=== PATIENT | female | born 1935 | race Hispanic/Latino ===

== ENCOUNTER 2016-02-07 21:25 | Emergency (ER) | payer OTHER ==
[~2016-02-07] VITALS: Ht 160 cm; Wt 104.1 kg
[~2016-02-07 21:25] MED LIST: AMLODIPINE BESYL5 MG PO; JANUVIA100 MG PO; LISINOPRIL40 MG PO; LOVASTATIN40 MG PO; METOPROLOL SUCC ER PO; WARFARIN SODIUM5 MG PO
[2016-02-07 21:43] VITALS: BP 147/52
[2016-02-07 22:26] LABS: HEMATOCRIT 39.3 % (36.0-46.0); MCH 28.9 PG (29.0-34.0); MCHC 33.3 G/DL (30.0-36.0); MCV 86.6 FL (83-99); MEAN PLAT.VOLUME 10.4 uM^3 (9.5-12.4); PLATELET COUNT 219 K/uL (156-360); RBC DIS.WIDTH-SD 43.3 % (39-53); RED BLOOD COUNT 4.54 M/uL (3.80-5.20); WHITE BLOOD COUNT 7.8 K/uL (4.1-10.2)
[2016-02-07 22:35] LABS: CHLORIDE 103 mEq/L (99-109); POTASSIUM 3.8 mEq/L (3.7-5.4); SODIUM 142 mEq/L (136-147)
[2016-02-07 22:37] LABS: GLUCOSE 140 mg/dL (70-99)
[2016-02-07 22:38] LABS: ANION GAP 13 MEQ/L (2-14)
[2016-02-07 22:41] LABS: GFR ESTIMATE (CALCULATED) > 59 mL/min/
[2016-02-07 22:42] LABS: UREA NITROGEN (BUN) 17 mg/dL (9-23)
[2016-02-07 23:11] LABS: PROTHROMBIN TIME 31.9 (9.2-11.2); PTT 52.5 (25-32)
[2016-02-07 23:29] LABS: ADD MIUA? YES; BILIRUBIN NEGATIVE; BLOOD LARGE; COLOR DK YELLOW ((YELLOW)); GLUCOSE (STRIP) >=1000; KETONES TRACE; LEUKOCYTES SMALL; NITRITE NEGATIVE; PROTEIN (STRIP) TRACE; SPECIFIC GRAVITY 1.032 (1.000-1.030)
[2016-02-08 00:16] LABS: RED BLOOD CELLS TNTC /HPF (0-5); UCUL ADDED? YES
[2016-02-08] MEDS ORDERED: BACTRIM,SEPT1 TABLET PO (00:23)
[2016-02-08] MEDS ORDERED: PYRIDIUM100 MG PO (00:23)
== END 2016-02-08 00:31 | disposition home or self-care (01) ==
LOC: EME 21:25 → EXP 21:35 → EME 21:35
PROVIDERS: Physician Assistant
DX: N39.0 Urinary tract infection, site not specified (principal); I10 Essential (primary) hypertension; E11.9 Type 2 diabetes mellitus without complications; I48.91 Unspecified atrial fibrillation; Z79.01 Long term (current) use of anticoagulants
CPT/HCPCS: 74176; 80048; 81003; 85027; 85610; 85730; 86850; 86900; 86901; 87077; 87086; 87186; 99281; 99284

== ENCOUNTER 2016-11-29 10:14 | Inpatient (IN) | payer OTHER ==
[~2016-11-29] VITALS: Ht 157.5 cm; Wt 105.5 kg
[~2016-11-29 10:14] MED LIST changes: +BACTRIM,SEPT1 TABLET PO; +PYRIDIUM100 MG PO
[2016-11-29 10:37] LABS: EOSINOPHIL (%) 0.7 % (0-5); EOSINOPHIL COUNT 0.1 K/uL (0-0.3); HEMATOCRIT 40.5 % (36.0-46.0); IMMATURE GRANULOCYTE (%) 0.4 % (0.0-0.7); MCH 29.2 PG (29.0-34.0); MCHC 32.8 G/DL (30.0-36.0); MEAN PLAT.VOLUME 10.2 uM^3 (9.5-12.4); MONOCYTE (%) 5.7 % (3-12); MONOCYTE COUNT 0.6 K/uL (0-0.8); NEUTROPHIL (%) 83.7 % (45-76); PLATELET COUNT 214 K/uL (156-360); RBC DIS.WIDTH-CV 13.2 % (11.8-14.6); RED BLOOD COUNT 4.55 M/uL (3.80-5.20); WHITE BLOOD COUNT 10.7 K/uL (4.1-10.2)
[2016-11-29 10:44] LABS: CHLORIDE 100 mEq/L (99-109); SODIUM 136 mEq/L (136-147)
[2016-11-29 10:46] LABS: GLUCOSE 205 mg/dL (70-99)
[2016-11-29 10:47] LABS: ANION GAP 12 MEQ/L (2-14)
[2016-11-29 10:48] LABS: TOTAL BILIRUBIN 0.5 mg/dL (0.0-1.0)
[2016-11-29 10:50] LABS: ALKALINE PHOSPHATASE 72 IU/L (3-129); GFR ESTIMATE (CALCULATED) > 59 mL/min/
[2016-11-29 10:51] LABS: UREA NITROGEN (BUN) 16 mg/dL (9-23)
[2016-11-29 10:57] LABS: TROP-I INTERPRETATION NEGATIVE; TROPONIN-I 0.01 ng/mL (0.0-0.30)
[2016-11-29 11:03] LABS: LIPASE 14 U/L (1.0-51.0)
[2016-11-29 13:18] LABS: INTER. NORMALIZED RATIO 2.7; PROTHROMBIN TIME 31.3 SEC (10.2-12.9)
[2016-11-29 16:08] VITALS: BP 123/56
[2016-11-29] MEDS ORDERED: ACETAMINOPHEN325 M3 PO (17:40)
[2016-11-29] MEDS ORDERED: CHLORTHALIDONE25 MG PO (17:40)
[2016-11-29] MEDS ORDERED: LOPRESSOR50 MG PO (17:41)
[2016-11-29 18:09] LABS: TROP-I INTERPRETATION NEGATIVE; TROPONIN-I 0.06 ng/mL (0.0-0.30)
[2016-11-29 18:19] LABS: POINT-OF-CARE METER ID UU14314084
[2016-11-29 19:10] VITALS: BP 111/54
[2016-11-29] MEDS ORDERED: METOPROLOL SUCC50 MG PO (21:41)
[2016-11-29] MEDS ORDERED: NORVASC10 MG PO (21:43)
[2016-11-29] MEDS ORDERED: COLACE100 MG PO (21:45)
[2016-11-29] MEDS ORDERED: FUROSEMIDE20 MG PO (21:46)
[2016-11-29] MEDS ORDERED: CITRATE OF MAG296 ML PO (21:47)
[2016-11-29] MEDS ORDERED: GLUCOPHAGE1000 MG PO (21:47)
[2016-11-29] MEDS ORDERED: PYRIDIUM100 MG PO (21:49)
[2016-11-29] MEDS ORDERED: ERGOCALCIF50000 UNIT PO (21:52)
[2016-11-29] MEDS ORDERED: VENTOLIN HFA18 GM IH (21:52)
[2016-11-29] MEDS ORDERED: TYLENOL WITH C1 EACH PO (21:55)
[2016-11-29] MEDS ORDERED: BACTRIM,SEPT1 TABLET PO (21:55)
[2016-11-29 22:03] LABS: POINT-OF-CARE METER ID UU14208750
[2016-11-29 23:50] VITALS: BP 127/62
[2016-11-30 01:49] LABS: TROP-I INTERPRETATION NEGATIVE; TROPONIN-I 0.08 ng/mL (0.0-0.30)
[2016-11-30 02:50] VITALS: BP 177/79
[2016-11-30 05:55] LABS: INFLUENZA A VIRAL ANTIGEN NEGATIVE; INFLUENZA B VIRAL ANTIGEN NEGATIVE
[2016-11-30 06:47] LABS: HEMATOCRIT 36.5 % (36.0-46.0); MCH 28.9 PG (29.0-34.0); MCHC 31.8 G/DL (30.0-36.0); MEAN PLAT.VOLUME 10.9 uM^3 (9.5-12.4); PLATELET COUNT 210 K/uL (156-360); RBC DIS.WIDTH-CV 13.2 % (11.8-14.6); RBC DIS.WIDTH-SD 44.1 % (39-53); RED BLOOD COUNT 4.01 M/uL (3.80-5.20); WHITE BLOOD COUNT 7.3 K/uL (4.1-10.2)
[2016-11-30 06:49] LABS: INTER. NORMALIZED RATIO 2.8; PROTHROMBIN TIME 31.9 SEC (10.2-12.9)
[2016-11-30 07:00] VITALS: BP 149/67
[2016-11-30 07:03] LABS: POINT-OF-CARE METER ID UU14208750
[2016-11-30 11:05] VITALS: BP 148/66
[2016-11-30 11:52] LABS: POINT-OF-CARE METER ID UU14208750
[2016-11-30 15:00] VITALS: BP 148/67
[2016-11-30 16:11] LABS: POINT-OF-CARE METER ID UU14208750; POINT-OF-CARE USER ID PUTDRM
[2016-11-30 20:04] VITALS: BP 131/61
[2016-11-30 22:01] LABS: POINT-OF-CARE METER ID UU14314084
[2016-12-01 01:09] VITALS: BP 128/63
[2016-12-01 03:39] VITALS: BP 166/72
[2016-12-01 07:09] LABS: EOSINOPHIL (%) 3.8 % (0-5); EOSINOPHIL COUNT 0.2 K/uL (0-0.3); HEMATOCRIT 34.6 % (36.0-46.0); IMMATURE GRANULOCYTE (%) 0.3 % (0.0-0.7); INSTRUMENT ABS NEUTROPHIL CT 3.2 K/uL; LYMPHOCYTE COUNT 1.6 K/uL (1.0-2.8); MCH 29.4 PG (29.0-34.0); MCHC 32.7 G/DL (30.0-36.0); MCV 89.9 FL (83-99); MEAN PLAT.VOLUME 10.2 uM^3 (9.5-12.4); MONOCYTE (%) 12.9 % (3-12); MONOCYTE COUNT 0.8 K/uL (0-0.8); NEUTROPHIL (%) 54.2 % (45-76); NEUTROPHIL COUNT 3.2 K/uL (1.8-6.4); PLATELET COUNT 167 K/uL (156-360); RBC DIS.WIDTH-CV 13.2 % (11.8-14.6); RBC DIS.WIDTH-SD 43.3 % (39-53); RED BLOOD COUNT 3.85 M/uL (3.80-5.20); WHITE BLOOD COUNT 5.8 K/uL (4.1-10.2)
[2016-12-01 07:29] LABS: ALKALINE PHOSPHATASE 55 IU/L (3-129); ANION GAP 7 MEQ/L (2-14); CHLORIDE 104 MEQ/L (99-109); GFR ESTIMATE (CALCULATED) > 59 mL/min/; POTASSIUM 3.4 MEQ/L (3.7-5.4); SAMPLE HEMOLYSIS CHECK 0; SAMPLE ICTERIC CHECK 0; SAMPLE LIPEMIA CHECK 0; TOTAL BILIRUBIN 0.3 MG/DL (0.0-1.0); UREA NITROGEN (BUN) 9 mg/dL (9-23)
[2016-12-01 07:37] LABS: GLUCOSE 114 mg/dL (70-99); SODIUM 144 MEQ/L (136-147)
[2016-12-01 07:37] LABS: POINT-OF-CARE METER ID UU14208750
[2016-12-01 07:48] VITALS: BP 167/72
[2016-12-01] MEDS ORDERED: LOPRESSOR25 MG PO (11:29)
[2016-12-01] MEDS ORDERED: CEFTIN500 MG PO (11:29)
[2016-12-01] MEDS ORDERED: METOPROLOL SUCC50 MG PO (11:42)
[2016-12-01 11:54] LABS: POINT-OF-CARE METER ID UU14208750
== END 2016-12-01 13:02 | disposition home or self-care (01) | DRG 195 ==
LOC: EME 10:14 → EDOF 12:29 → 2EAST 12:29 → ENRESERV 12:36 → 2EAST 15:42
PROVIDERS: Emergency Medicine; Hospitalist; Internal Medicine
DX: J18.9 Pneumonia, unspecified organism (principal); I48.0 Paroxysmal atrial fibrillation; I10 Essential (primary) hypertension; G47.33 Obstructive sleep apnea (adult) (pediatric); E78.5 Hyperlipidemia, unspecified; E11.9 Type 2 diabetes mellitus without complications; K59.09 Other constipation; Z79.01 Long term (current) use of anticoagulants; Z90.49 Acquired absence of other specified parts of digestive tract; Z96.652 Presence of left artificial knee joint
CPT/HCPCS: 71010; 80053; 82948; 83605; 83690; 83880; 84484; 85025; 85027; 85610; 87040; 87070; 87205; 87502; 90686; 93005; 94660; 94799; 99202; 99281; 99285; J0456; J0696; J1815; J2270; J2405; J7030; J7040; J7050; S0028

== ENCOUNTER 2017-06-06 17:10 | Emergency (ER) | payer OTHER ==
[~2017-06-06] VITALS: Ht 160 cm; Wt 101.9 kg
[~2017-06-06 17:10] MED LIST changes: +ACETAMINOPHEN325 M3 PO; +CEFTIN500 MG PO; +CHLORTHALIDONE25 MG PO; +CITRATE OF MAG296 ML PO; +COLACE100 MG PO; +ERGOCALCIF50000 UNIT PO; +FUROSEMIDE20 MG PO; +GLUCOPHAGE1000 MG PO; +LOPRESSOR25 MG PO; +LOPRESSOR50 MG PO; +METOPROLOL SUCC50 MG PO; +NORVASC10 MG PO; +TYLENOL WITH C1 EACH PO; +VENTOLIN HFA18 GM IH
[2017-06-06 18:51] LABS: HEMATOCRIT 37.1 % (36.0-46.0); HEMOGLOBIN 12.2 G/DL (11.9-15.5); MCH 28.4 PG (29.0-34.0); MCHC 32.9 G/DL (30.0-36.0); MCV 86.3 FL (83-99); PLATELET COUNT 190 K/uL (156-360); RBC DIS.WIDTH-CV 13.7 % (11.8-14.6); RBC DIS.WIDTH-SD 42.9 % (39-53); WHITE BLOOD COUNT 6.6 K/uL (4.1-10.2)
[2017-06-06 18:56] LABS: CHLORIDE 102 mEq/L (99-109); POTASSIUM 4.5 mEq/L (3.7-5.4); SODIUM 139 mEq/L (136-147)
[2017-06-06 18:58] LABS: GLUCOSE 178 mg/dL (70-99)
[2017-06-06 19:02] LABS: CREATININE 0.6 mg/dL (0.6-1.3); GFR ESTIMATE (CALCULATED) > 59 mL/min/; UREA NITROGEN (BUN) 15 mg/dL (9-23)
[2017-06-06 19:10] LABS: TROP-I INTERPRETATION NEGATIVE; TROPONIN-I 0.01 ng/mL (0.0-0.30)
[2017-06-06 22:02] LABS: APPEARANCE CLEAR ((CLEAR)); BILIRUBIN NEGATIVE; BLOOD NEGATIVE; COLOR COLORLESS ((YELLOW)); GLUCOSE (STRIP) NEGATIVE; KETONES NEGATIVE; LEUKOCYTES TRACE; NITRITE NEGATIVE; PROTEIN (STRIP) NEGATIVE; SPECIFIC GRAVITY 1.006 (1.000-1.030); UROBILINOGEN 0.2 MG/DL (0.2-1.0)
[2017-06-06 22:14] LABS: BACTERIA NONE SEEN /HPF; EPITHELIAL CELLS RARE /HPF; MUCUS NONE SEEN /LPF; RED BLOOD CELLS 0-5 /HPF (0-5); WHITE BLOOD CELLS 0-5 /HPF (0-5)
[2017-06-06] MEDS ORDERED: LORCET HD 10-31 EACH PO (22:23)
[2017-06-06 22:45] VITALS: BP 110/60
== END 2017-06-06 22:47 | disposition home or self-care (01) ==
LOC: EME 17:10
PROVIDERS: Emergency Medicine; Nurse Practitioner Family
DX: M48.061 Spinal stenosis, lumbar region without neurogenic claudication (principal); M54.16 Radiculopathy, lumbar region; E11.9 Type 2 diabetes mellitus without complications; Z79.84 Long term (current) use of oral hypoglycemic drugs; I10 Essential (primary) hypertension; E78.5 Hyperlipidemia, unspecified; G89.29 Other chronic pain; M54.9 Dorsalgia, unspecified; Z79.01 Long term (current) use of anticoagulants; Z87.440 Personal history of urinary (tract) infections; Z85.9 Personal history of malignant neoplasm, unspecified; Z90.49 Acquired absence of other specified parts of digestive tract; Z96.652 Presence of left artificial knee joint; Z88.0 Allergy status to penicillin
CPT/HCPCS: 72128; 72131; 74176; 80048; 81003; 84484; 85027; 93005; 99281; 99285; J2405; J3010; J7030

== ENCOUNTER 2017-07-02 10:19 | Inpatient (IN) | payer OTHER ==
[~2017-07-02] VITALS: Ht 160 cm; Wt 99.9 kg
[~2017-07-02 10:19] MED LIST changes: +LORCET HD 10-31 EACH PO
[2017-07-02 11:07] LABS: HEMATOCRIT 38.7 % (36.0-46.0); HEMOGLOBIN 13.1 G/DL (11.9-15.5); MCH 28.7 PG (29.0-34.0); MCHC 33.9 G/DL (30.0-36.0); MCV 84.7 FL (83-99); PLATELET COUNT 159 K/uL (156-360); RBC DIS.WIDTH-CV 13.5 % (11.8-14.6); RBC DIS.WIDTH-SD 42.1 % (39-53); RED BLOOD COUNT 4.57 M/uL (3.80-5.20); WHITE BLOOD COUNT 6.1 K/uL (4.1-10.2)
[2017-07-02 11:18] LABS: CHLORIDE 98 mEq/L (99-109); POTASSIUM 3.7 mEq/L (3.7-5.4); SODIUM 136 mEq/L (136-147)
[2017-07-02 11:20] LABS: GLUCOSE 219 mg/dL (70-99)
[2017-07-02 11:24] LABS: CREATININE 0.7 mg/dL (0.6-1.3); GFR ESTIMATE (CALCULATED) > 59 mL/min/
[2017-07-02 11:25] LABS: UREA NITROGEN (BUN) 11 mg/dL (9-23)
[2017-07-02 11:28] LABS: TROP-I INTERPRETATION NEGATIVE; TROPONIN-I 0.03 ng/mL (0.0-0.30)
[2017-07-02 13:44] LABS: BASE EXCESS 4.3 mEq/L (-3 to +3); BICARBONATE 29.8 mEq/L (22-26); CARBOXY HGB 1.7 % (0-5); COMMENTS - BLOOD GASES +C; METHEMOGLOBIN 1.1 % (0-1.5); O2 FLOW 3 L/MIN; PCO2 47 mm Hg (35-45); PO2 81 mm Hg (80-100); SITE RR +A; pH 7.41 (7.35-7.45)
[2017-07-02 13:45] LABS: DEVICE NC; TOTAL RESP RATE 32 resp/min
[2017-07-02 14:40] LABS: INTER. NORMALIZED RATIO 2.8
[2017-07-02 14:43] LABS: PTT 40.5 SEC (25-37)
[2017-07-02] MEDS ORDERED: LYRICA75 MG PO (14:57)
[2017-07-02] MEDS ORDERED: ONE DAILY1 EAC3 PO (14:57)
[2017-07-02] MEDS ORDERED: COUMADIN4 MG PO (14:57)
[2017-07-02] MEDS ORDERED: LINZESS145 MCG PO (14:58)
[2017-07-02] MEDS ORDERED: LEVEMIR100 UNIT/2 SC (14:58)
[2017-07-02] MEDS ORDERED: NOVOLOG PE100 UNITS/ SC (14:58)
[2017-07-02] MEDS ORDERED: TOPROL XL50 MG PO (14:59)
[2017-07-02] MEDS ORDERED: LOPRESSOR100 M1 PO (14:59)
[2017-07-02] MEDS ORDERED: TYLENOL EXTRA500 MG PO (15:00)
[2017-07-02] MEDS ORDERED: EAR DROPS15 ML BOTH EARS (15:01)
[2017-07-02 16:17] VITALS: BP 178/74
[2017-07-02 18:25] LABS: TROP-I INTERPRETATION NEGATIVE; TROPONIN-I 0.03 ng/mL (0.0-0.30)
[2017-07-02 20:04] VITALS: BP 150/67
[2017-07-03 00:27] VITALS: BP 166/40
[2017-07-03 00:54] LABS: TROP-I INTERPRETATION NEGATIVE; TROPONIN-I 0.02 ng/mL (0.0-0.30)
[2017-07-03 03:57] VITALS: BP 188/74
[2017-07-03 05:34] LABS: HEMATOCRIT 39.8 % (36.0-46.0); HEMOGLOBIN 12.8 G/DL (11.9-15.5); MCH 27.8 PG (29.0-34.0); MCHC 32.2 G/DL (30.0-36.0); MCV 86.3 FL (83-99); PLATELET COUNT 182 K/uL (156-360); RBC DIS.WIDTH-CV 13.7 % (11.8-14.6); RBC DIS.WIDTH-SD 43.1 % (39-53); RED BLOOD COUNT 4.61 M/uL (3.80-5.20)
[2017-07-03 05:39] LABS: INTER. NORMALIZED RATIO 2.6
[2017-07-03 05:58] LABS: CHLORIDE 100 MEQ/L (99-109); CREATININE 0.6 MG/DL (0.6-1.3); GFR ESTIMATE (CALCULATED) > 59 mL/min/; SODIUM 136 MEQ/L (136-147); UREA NITROGEN (BUN) 15 mg/dL (9-23)
[2017-07-03 06:01] LABS: GLUCOSE 346 mg/dL (70-99)
[2017-07-03 07:00] VITALS: BP 181/77
[2017-07-03 11:46] VITALS: BP 182/77
[2017-07-03 15:39] VITALS: BP 170/100
[2017-07-03 19:04] VITALS: BP 186/76
[2017-07-04 00:06] VITALS: BP 175/72
[2017-07-04 03:44] VITALS: BP 168/73
[2017-07-04 05:22] LABS: INTER. NORMALIZED RATIO 2.6
[2017-07-04 07:46] VITALS: BP 164/66
[2017-07-04 11:43] VITALS: BP 171/72
[2017-07-04 16:25] VITALS: BP 147/69
[2017-07-04 20:30] VITALS: BP 152/70
[2017-07-05] VITALS (8 sets, daily range): BP systolic 109–185; BP diastolic 58–76
[2017-07-05 05:17] LABS: INTER. NORMALIZED RATIO 3.6
[2017-07-05 10:23] LABS: PCO2 46 mm Hg (35-45); PO2 84 mm Hg (80-100); pH 7.38 (7.35-7.45)
[2017-07-05 10:24] LABS: BASE EXCESS 1.5 mEq/L (-3 to +3); BICARBONATE 27.2 mEq/L (22-26); CARBOXY HGB 1.4 % (0-5); COMMENTS - BLOOD GASES A+C+; DEVICE NC; METHEMOGLOBIN 1.4 % (0-1.5); O2 FLOW 2 L/MIN; SITE RR
[2017-07-05 10:54] LABS: BASOPHIL (%) 0.1 % (0-1); EOSINOPHIL (%) 0 % (0-5); HEMATOCRIT 39.5 % (36.0-46.0); HEMOGLOBIN 13.1 G/DL (11.9-15.5); IMMATURE GRANULOCYTE (%) 1.7 % (0.0-0.7); LYMPHOCYTE (%) 2.4 % (15-42); LYMPHOCYTE COUNT 0.3 K/uL (1.0-2.8); MCH 28.4 PG (29.0-34.0); MCHC 33.2 G/DL (30.0-36.0); MCV 85.7 FL (83-99); MONOCYTE (%) 5.3 % (3-12); MONOCYTE COUNT 0.6 K/uL (0-0.8); NEUTROPHIL (%) 90.5 % (45-76); NEUTROPHIL COUNT 10.7 K/uL (1.8-6.4); PLATELET COUNT 197 K/uL (156-360); RBC DIS.WIDTH-CV 14.1 % (11.8-14.6); RBC DIS.WIDTH-SD 43.8 % (39-53); RED BLOOD COUNT 4.61 M/uL (3.80-5.20); WHITE BLOOD COUNT 11.9 K/uL (4.1-10.2)
[2017-07-05 11:23] LABS: ALBUMIN 3.5 G/DL (3.2-4.8); ALKALINE PHOSPHATASE 72 IU/L (3-129); ALT (GPT) 16 IU/L (3-49); AST (GOT) 16 IU/L (2-34); CHLORIDE 96 MEQ/L (99-109); CREATININE 0.8 MG/DL (0.6-1.3); GFR ESTIMATE (CALCULATED) > 59 mL/min/; MAGNESIUM 2.1 mg/dl (1.3-2.7); POTASSIUM 3.8 MEQ/L (3.7-5.4); SODIUM 135 MEQ/L (136-147); TOTAL BILIRUBIN 0.3 MG/DL (0.0-1.0); TOTAL PROTEIN 5.8 G/DL (6.4-8.3)
[2017-07-05 11:24] LABS: GLUCOSE 464 mg/dL (70-99); UREA NITROGEN (BUN) 36 mg/dL (9-23)
[2017-07-06 04:43] VITALS: BP 135/58
[2017-07-06 05:48] LABS: BASOPHIL (%) 0.1 % (0-1); EOSINOPHIL (%) 0 % (0-5); HEMATOCRIT 40.6 % (36.0-46.0); HEMOGLOBIN 12.9 G/DL (11.9-15.5); IMMATURE GRANULOCYTE (%) 1.6 % (0.0-0.7); LYMPHOCYTE (%) 5.5 % (15-42); LYMPHOCYTE COUNT 0.5 K/uL (1.0-2.8); MCH 27.4 PG (29.0-34.0); MCHC 31.8 G/DL (30.0-36.0); MCV 86.2 FL (83-99); MONOCYTE (%) 4.4 % (3-12); MONOCYTE COUNT 0.4 K/uL (0-0.8); NEUTROPHIL (%) 88.4 % (45-76); NEUTROPHIL COUNT 7.4 K/uL (1.8-6.4); PLATELET COUNT 199 K/uL (156-360); RBC DIS.WIDTH-CV 14.1 % (11.8-14.6); RED BLOOD COUNT 4.71 M/uL (3.80-5.20); WHITE BLOOD COUNT 8.3 K/uL (4.1-10.2)
[2017-07-06 05:49] LABS: INTER. NORMALIZED RATIO 2.9
[2017-07-06 06:18] LABS: CHLORIDE 96 MEQ/L (99-109); CREATININE 0.9 MG/DL (0.6-1.3); GFR ESTIMATE (CALCULATED) > 59 mL/min/; GLUCOSE 391 mg/dL (70-99); MAGNESIUM 2.2 mg/dl (1.3-2.7); POTASSIUM 3.7 MEQ/L (3.7-5.4); SODIUM 137 MEQ/L (136-147); UREA NITROGEN (BUN) 41 mg/dL (9-23)
[2017-07-06 08:03] VITALS: BP 145/64
[2017-07-06 11:12] VITALS: BP 106/53
[2017-07-06 12:16] LABS: CARBOXY HGB 1.8 % (0-5); PCO2 51 mm Hg (35-45); PO2 93 mm Hg (80-100); pH 7.39 (7.35-7.45)
[2017-07-06 12:17] LABS: BASE EXCESS 4.8 mEq/L (-3 to +3); BICARBONATE 30.9 mEq/L (22-26); COMMENTS - BLOOD GASES A+C+; DEVICE NC; METHEMOGLOBIN 0.9 % (0-1.5); O2 FLOW 3 L/MIN; SITE LR; TOTAL RESP RATE 24 resp/min
[2017-07-06 15:32] VITALS: BP 152/73
[2017-07-06 19:28] VITALS: BP 150/55
[2017-07-06 21:09] LABS: COMMENTS - BLOOD GASES A+C+; DEVICE CPAP; O2 FLOW 3 L/MIN; SITE LR
[2017-07-06 21:10] LABS: PCO2 50 mm Hg (35-45); PO2 84 mm Hg (80-100); pH 7.43 (7.35-7.45)
[2017-07-06 21:11] LABS: BASE EXCESS 7.6 mEq/L (-3 to +3); BICARBONATE 33.2 mEq/L (22-26); CARBOXY HGB 1.2 % (0-5); METHEMOGLOBIN 1.1 % (0-1.5)
[2017-07-07 00:20] VITALS: BP 161/67
[2017-07-07 05:08] LABS: HEMATOCRIT 38.9 % (36.0-46.0); HEMOGLOBIN 12.8 G/DL (11.9-15.5); MCH 27.9 PG (29.0-34.0); MCHC 32.9 G/DL (30.0-36.0); MCV 84.9 FL (83-99); PLATELET COUNT 229 K/uL (156-360); RBC DIS.WIDTH-CV 13.9 % (11.8-14.6); RBC DIS.WIDTH-SD 43.2 % (39-53); RED BLOOD COUNT 4.58 M/uL (3.80-5.20); WHITE BLOOD COUNT 9.3 K/uL (4.1-10.2)
[2017-07-07 06:17] LABS: BASOPHIL (%) 0.3 % (0-1); EOSINOPHIL (%) 0 % (0-5); IMMATURE GRANULOCYTE (%) 1.6 % (0.0-0.7); LYMPHOCYTE (%) 12.6 % (15-42); LYMPHOCYTE COUNT 1.2 K/uL (1.0-2.8); MONOCYTE (%) 4.6 % (3-12); MONOCYTE COUNT 0.4 K/uL (0-0.8); NEUTROPHIL (%) 80.9 % (45-76); NEUTROPHIL COUNT 7.5 K/uL (1.8-6.4)
[2017-07-07 07:58] LABS: CHLORIDE 98 MEQ/L (99-109); CREATININE 0.7 MG/DL (0.6-1.3); GFR ESTIMATE (CALCULATED) > 59 mL/min/; GLUCOSE 332 mg/dL (70-99); POTASSIUM 4.2 MEQ/L (3.7-5.4); SODIUM 138 MEQ/L (136-147); UREA NITROGEN (BUN) 36 mg/dL (9-23)
[2017-07-07 10:16] LABS: INTER. NORMALIZED RATIO 2.2
[2017-07-07 11:19] VITALS: BP 135/62
[2017-07-07 15:21] VITALS: BP 128/56
[2017-07-07 19:19] VITALS: BP 157/64
[2017-07-08] VITALS (7 sets, daily range): BP systolic 124–184; BP diastolic 57–96
[2017-07-08 05:28] LABS: HEMATOCRIT 39.6 % (36.0-46.0); HEMOGLOBIN 12.9 G/DL (11.9-15.5); MCH 27.7 PG (29.0-34.0); MCHC 32.6 G/DL (30.0-36.0); MCV 85.2 FL (83-99); PLATELET COUNT 223 K/uL (156-360); RBC DIS.WIDTH-CV 13.8 % (11.8-14.6); RBC DIS.WIDTH-SD 42.9 % (39-53); RED BLOOD COUNT 4.65 M/uL (3.80-5.20); WHITE BLOOD COUNT 8.4 K/uL (4.1-10.2)
[2017-07-08 05:42] LABS: INTER. NORMALIZED RATIO 1.9
[2017-07-08 05:55] LABS: CHLORIDE 95 MEQ/L (99-109); CREATININE 0.5 MG/DL (0.6-1.3); GFR ESTIMATE (CALCULATED) > 59 mL/min/; GLUCOSE 273 mg/dL (70-99); SODIUM 137 MEQ/L (136-147); UREA NITROGEN (BUN) 30 mg/dL (9-23)
[2017-07-08 06:36] LABS: BASOPHIL (%) 0.2 % (0-1); EOSINOPHIL (%) 0 % (0-5); IMMATURE GRANULOCYTE (%) 1.9 % (0.0-0.7); LYMPHOCYTE (%) 12.9 % (15-42); LYMPHOCYTE COUNT 1.1 K/uL (1.0-2.8); MONOCYTE (%) 3.2 % (3-12); MONOCYTE COUNT 0.3 K/uL (0-0.8); NEUTROPHIL (%) 81.8 % (45-76); NEUTROPHIL COUNT 6.9 K/uL (1.8-6.4)
[2017-07-09 05:14] LABS: INTER. NORMALIZED RATIO 2.1
[2017-07-09 05:19] VITALS: BP 178/75
[2017-07-09 08:14] LABS: CHLORIDE 94 MEQ/L (99-109); CREATININE 0.6 MG/DL (0.6-1.3); GFR ESTIMATE (CALCULATED) > 59 mL/min/; GLUCOSE 365 mg/dL (70-99); SODIUM 137 MEQ/L (136-147); UREA NITROGEN (BUN) 29 mg/dL (9-23)
[2017-07-09 08:31] LABS: BASOPHIL (%) 0.3 % (0-1); EOSINOPHIL (%) 0 % (0-5); HEMATOCRIT 37.4 % (36.0-46.0); HEMOGLOBIN 12.3 G/DL (11.9-15.5); IMMATURE GRANULOCYTE (%) 2.7 % (0.0-0.7); LYMPHOCYTE (%) 6.3 % (15-42); LYMPHOCYTE COUNT 0.5 K/uL (1.0-2.8); MCH 28.1 PG (29.0-34.0); MCHC 32.9 G/DL (30.0-36.0); MCV 85.4 FL (83-99); MONOCYTE (%) 3.9 % (3-12); MONOCYTE COUNT 0.3 K/uL (0-0.8); NEUTROPHIL (%) 86.8 % (45-76); NEUTROPHIL COUNT 6.5 K/uL (1.8-6.4); NRBC (%) 0.7 /100 WBC (0-0); PLATELET COUNT 201 K/uL (156-360); RBC DIS.WIDTH-CV 13.7 % (11.8-14.6); RBC DIS.WIDTH-SD 43.2 % (39-53); RED BLOOD COUNT 4.38 M/uL (3.80-5.20); WHITE BLOOD COUNT 7.5 K/uL (4.1-10.2)
[2017-07-09 09:20] VITALS: BP 147/80
[2017-07-09 11:36] VITALS: BP 166/72
[2017-07-09 13:09] LABS: HEMOGLOBIN A1c (GLYCOHEMOGLOB) 8.5 % (Below 5.7)
[2017-07-09 15:30] VITALS: BP 168/77
[2017-07-09 19:33] VITALS: BP 136/63
[2017-07-09 23:01] LABS: GLUCOSE 551 mg/dL (70-99)
[2017-07-10] VITALS (8 sets, daily range): BP systolic 123–191; BP diastolic 56–84
[2017-07-11 03:46] VITALS: BP 176/73
[2017-07-11 05:51] LABS: INTER. NORMALIZED RATIO 2.4
[2017-07-11 06:34] VITALS: BP 153/67
[2017-07-11 07:21] VITALS: BP 140/66
[2017-07-11] MEDS ORDERED: LEVEMIR100 UNIT/2 SC (11:28)
[2017-07-11] MEDS ORDERED: ALPRAZOLAM0.5 MG PO (11:28)
[2017-07-11 11:30] VITALS: BP 139/61
[2017-07-11 14:29] LABS: BASOPHIL (%) 0.2 % (0-1); EOSINOPHIL (%) 0 % (0-5); HEMATOCRIT 39.5 % (36.0-46.0); HEMOGLOBIN 13.1 G/DL (11.9-15.5); IMMATURE GRANULOCYTE (%) 3.7 % (0.0-0.7); LYMPHOCYTE COUNT 0.8 K/uL (1.0-2.8); MCH 28.4 PG (29.0-34.0); MCHC 33.2 G/DL (30.0-36.0); MCV 85.7 FL (83-99); MONOCYTE (%) 6.3 % (3-12); MONOCYTE COUNT 1.1 K/uL (0-0.8); NEUTROPHIL (%) 84.8 % (45-76); NEUTROPHIL COUNT 14.3 K/uL (1.8-6.4); PLATELET COUNT 259 K/uL (156-360); RBC DIS.WIDTH-CV 13.9 % (11.8-14.6); RBC DIS.WIDTH-SD 43.3 % (39-53); RED BLOOD COUNT 4.61 M/uL (3.80-5.20); WHITE BLOOD COUNT 16.9 K/uL (4.1-10.2)
[2017-07-11 14:40] LABS: CHLORIDE 93 MEQ/L (99-109); MAGNESIUM 2.2 mg/dl (1.3-2.7); POTASSIUM 4.5 MEQ/L (3.7-5.4); SODIUM 133 MEQ/L (136-147)
[2017-07-11 14:51] LABS: CREATININE 0.7 MG/DL (0.6-1.3); GFR ESTIMATE (CALCULATED) > 59 mL/min/; UREA NITROGEN (BUN) 34 mg/dL (9-23)
[2017-07-11 15:00] LABS: GLUCOSE 430 mg/dL (70-99)
[2017-07-11 15:26] VITALS: BP 139/63
[2017-07-11 21:05] VITALS: BP 144/65
[2017-07-12 02:19] LABS: APPEARANCE CLEAR ((CLEAR)); BILIRUBIN NEGATIVE; BLOOD NEGATIVE; COLOR STRAW ((YELLOW)); GLUCOSE (STRIP) NEGATIVE; KETONES NEGATIVE; LEUKOCYTES TRACE; NITRITE NEGATIVE; PROTEIN (STRIP) NEGATIVE; SPECIFIC GRAVITY 1.012 (1.000-1.030); UROBILINOGEN 0.2 MG/DL (0.2-1.0)
[2017-07-12 03:09] LABS: BACTERIA RARE /HPF; EPITHELIAL CELLS RARE /HPF; MUCUS TRACE /LPF; RED BLOOD CELLS NONE SEEN /HPF (0-5); UCUL ADDED? NO; WHITE BLOOD CELLS 0-5 /HPF (0-5)
[2017-07-12 05:39] LABS: INTER. NORMALIZED RATIO 2.6
[2017-07-12 08:10] LABS: BASOPHIL (%) 0.3 % (0-1); EOSINOPHIL (%) 0.1 % (0-5); HEMATOCRIT 36.8 % (36.0-46.0); HEMOGLOBIN 12.1 G/DL (11.9-15.5); LYMPHOCYTE (%) 8.7 % (15-42); LYMPHOCYTE COUNT 1.1 K/uL (1.0-2.8); MCH 28.1 PG (29.0-34.0); MCHC 32.9 G/DL (30.0-36.0); MCV 85.4 FL (83-99); MONOCYTE (%) 5.6 % (3-12); MONOCYTE COUNT 0.7 K/uL (0-0.8); NEUTROPHIL (%) 81.3 % (45-76); NEUTROPHIL COUNT 10.5 K/uL (1.8-6.4); PLATELET COUNT 219 K/uL (156-360); RBC DIS.WIDTH-CV 14.1 % (11.8-14.6); RBC DIS.WIDTH-SD 43.9 % (39-53); RED BLOOD COUNT 4.31 M/uL (3.80-5.20); WHITE BLOOD COUNT 12.9 K/uL (4.1-10.2)
[2017-07-12 08:16] VITALS: BP 126/56
[2017-07-12 08:23] LABS: CHLORIDE 95 MEQ/L (99-109); CREATININE 0.5 MG/DL (0.6-1.3); GFR ESTIMATE (CALCULATED) > 59 mL/min/; GLUCOSE 268 mg/dL (70-99); SODIUM 135 MEQ/L (136-147); UREA NITROGEN (BUN) 30 mg/dL (9-23)
[2017-07-12] MEDS ORDERED: PREDNISONE10 MG PO (10:10)
== END 2017-07-12 13:51 | disposition home or self-care (01) | DRG 202 ==
LOC: EME 10:19 → 4SOUTH 13:24 → EDOF 13:24 → ENRESERV 13:31 → 4SOUTH 16:06
PROVIDERS: Emergency Medicine; Hospitalist; Internal Medicine; Internal Medicine Pulmonary Disease; Physician Assistant; Student in an Organized Health Care Education/Training Program
PROC: 5A09357 Assistance with Respiratory Ventilation, Less than 24 Consecutive Hours, Continuous Positive Airway Pressure (ICD-10-PCS; principal; 2017-07-03)
DX: J45.901 Unspecified asthma with (acute) exacerbation (principal); J96.01 Acute respiratory failure with hypoxia; G47.33 Obstructive sleep apnea (adult) (pediatric); E78.5 Hyperlipidemia, unspecified; E66.01 Morbid (severe) obesity due to excess calories; I48.2 Chronic atrial fibrillation; I48.0 Paroxysmal atrial fibrillation; I10 Essential (primary) hypertension; J20.9 Acute bronchitis, unspecified; M48.061 Spinal stenosis, lumbar region without neurogenic claudication; J18.9 Pneumonia, unspecified organism; F41.9 Anxiety disorder, unspecified; E11.65 Type 2 diabetes mellitus with hyperglycemia; E87.2 Acidosis; R79.89 Other specified abnormal findings of blood chemistry; Z96.652 Presence of left artificial knee joint; I27.20 Pulmonary hypertension, unspecified; T38.0X5A Adverse effect of glucocorticoids and synthetic analogues, initial encounter; Z68.39 Body mass index [BMI] 39.0-39.9, adult; Z71.3 Dietary counseling and surveillance; Z79.01 Long term (current) use of anticoagulants; Z79.899 Other long term (current) drug therapy; Z88.0 Allergy status to penicillin; Z79.4 Long term (current) use of insulin
CPT/HCPCS: 36600; 71045; 71046; 71250; 74176; 80048; 80053; 80202; 81003; 82803; 82948; 83036; 83605; 83735; 83880; 84145 90; 84484; 84999; 85025; 85027; 85610; 85730; 87040; 87070; 87205; 87449; 87502; 87641; 93005; 93306; 94640; 94640 76; 94644; 94660; 94760; 94799; 97530 GO; 97530 GP; 99202; 99281; 99285; G0378; J0360; J0456; J1815; J1940; J1956; J2405; J2920; J2930; J3370; J7512